=== PATIENT | female | born 1950 | race Caucasian/White ===

== ENCOUNTER → 2020-05-31 | Outpatient (CLI) | payer OTHER ==
[~2020-05-31] MED LIST: ASPI81CH; CALCIUM 500 +1 EAC2; CETI5; DOCU100; GLUC500; Hair, Skin & N1 EACH; POLY500
== END | disposition home or self-care (01) ==
LOC: PLD 10:59 → LAB SHORT 10:59
DX: D22.5 Melanocytic nevi of trunk (principal)
CPT/HCPCS: 88305

== ENCOUNTER 2023-02-20 07:39 | Day surgery (SDC) | payer OTHER ==
[~2023-02-20] VITALS: Ht 170.2 cm; Wt 63.6 kg
[2023-02-20] MEDS ORDERED: PRESERVISION A1 EAC1 (08:07)
[2023-02-20 10:02] VITALS: BP 124/69
--- NOTE | 2023-02-20 10:03 | NUR ---
02/20/23 1003 Megan Ontiveros IV REMOVED, SITE WNL
== END 2023-02-20 10:04 | disposition home or self-care (01) ==
LOC: ORSCSDS 07:39
PROVIDERS: Internal Medicine Gastroenterology
PROC: 0DBM8ZX Excision of Descending Colon, Via Natural or Artificial Opening Endoscopic, Diagnostic (ICD-10-PCS; principal; 2023-02-20 09:00)
PROC: 0DBK8ZX Excision of Ascending Colon, Via Natural or Artificial Opening Endoscopic, Diagnostic (ICD-10-PCS; principal; 2023-02-20 09:00)
DX: Z12.11 Encounter for screening for malignant neoplasm of colon (principal); D12.2 Benign neoplasm of ascending colon; D12.4 Benign neoplasm of descending colon; K57.30 Diverticulosis of large intestine without perforation or abscess without bleeding; Z86.010 Personal history of colon polyps; Z79.899 Other long term (current) drug therapy; Z87.891 Personal history of nicotine dependence
CPT/HCPCS: 88305; J2704; J7120